=== PATIENT | male | born 1960 | race Caucasian/White ===

== ENCOUNTER 2017-06-02 01:52 | Emergency (ER) | payer OTHER ==
[~2017-06-02] VITALS: Ht 167.6 cm; Wt 67.7 kg
[2017-06-02] MEDS ORDERED: NORCO 5/3251 TABLET PO (03:09)
[2017-06-02 03:28] VITALS: BP 146/78
== END 2017-06-02 03:28 | disposition home or self-care (01) ==
LOC: EXP 01:52 → EME 01:52 → EXP 03:28
PROC: 0PSVXZZ Reposition Left Finger Phalanx, External Approach (ICD-10-PCS; principal; 2017-06-02)
DX: S62.617A Displaced fracture of proximal phalanx of left little finger, initial encounter for closed fracture (principal); W22.8XXA Striking against or struck by other objects, initial encounter; I10 Essential (primary) hypertension; F17.200 Nicotine dependence, unspecified, uncomplicated
CPT/HCPCS: 73140; 99281; 99283